=== PATIENT | male | born 1945 | race Caucasian/White ===

== ENCOUNTER 2019-05-07 23:40 | Inpatient (IN) ==
[2019-05-08 00:08] LABS: ABG Base Excess 1 mEq/L (-2 to 3); ABG HCO3 24 mEq/L (21-27); ABG Oxygen Saturation 91 % (95-98); ABG PCO2 29 mmHg (35-45); ABG PH 7.52 pH Units (7.32-7.45); ABG PO2 53 mmHg (85-104); ABG TCO2 24 mEq/L (20-26)
[2019-05-08 00:34] LABS: Basophils % 0.1 %; Eosinophils # 0.1 K/mcL (0.0-0.6); Eosinophils % 0.6 %; Hematocrit 34.2 % (37.5-50.1); Hemoglobin 11.6 g/dL (12.9-16.9); Immature Granulocytes % 0.6 % (0-4); Lymphocytes # 0.8 K/mcL (0.6-4.6); Lymphocytes % 5.7 %; Mean Corpuscular HGB Conc 33.9 g/dL (31.6-35.5); Mean Corpuscular Hemoglobin 31.8 pg (28.0-33.3); Mean Corpuscular Volume 93.7 fL (83.0-100.0); Mean Platelet Volume 9.5 fL (9.4-12.4); Monocytes # 0.9 K/mcL (0.0-1.3); Monocytes % 6.6 %; Neutrophils # 11.6 K/mcL (1.6-8.9); Platelet Count 277 K/mcL (140-400); Red Blood Count 3.65 M/mcL (4.19-5.50); Red Cell Distribution Width 18.3 % (11.5-14.5); Segmented Neutrophils % 86.4 %; White Blood Count 13.4 K/mcL (4.3-11.1)
[2019-05-08 00:48] LABS: INR 1.3; Prothrombin Time 14.7 Seconds (9.4-12.1)
[2019-05-08 00:50] LABS: Activated Partial Thrombo Time 27.4 Seconds (26.0-36.0)
[2019-05-08 00:55] LABS: BUN/Creatinine Ratio 20 (6-26); Blood Urea Nitrogen 14 mg/dL (8-23); Calcium 9.6 mg/dL (8.6-10.3); Carbon Dioxide 25 mEq/L (23-29); Chloride 102 mEq/L (98-107); Glucose 154 mg/dL (70-105); Osmolality,Calculated 286 (280-300); Potassium 4.1 mEq/L (3.5-5.1); Sodium 136 mEq/L (136-145); eGFR For African Americans > 60 (> 60); eGFR For Non-African Americans > 60 (> 60)
[2019-05-08] MEDS ORDERED: D5% in Water 1,000 ML IVC PRN (04:02)
[2019-05-08] MEDS ORDERED: Dextrose Gel 15 GM/37.5 ML TUBE PO PRN ×2 (04:02)
[2019-05-08] MEDS ORDERED: *HR* Dextrose 50 % in Water (Syg) 50 ML SYRINGE IVP PRN (04:02)
[2019-05-08] MEDS ORDERED: Naloxone 0.4 MG/ML INJ IVP PRN (04:02)
[2019-05-08] MEDS ORDERED: *HR* Metoprolol 5 MG/5 ML VIAL IVP ONE (04:50)
[2019-05-08] MEDS ORDERED: *HR* Heparin 5,000 UNIT/ML VIAL IVP PRN ×2 (04:53)
[2019-05-08] MEDS ORDERED: *HR* Heparin 5,000 UNIT/ML VIAL IVP ONE (04:53)
[2019-05-08] MEDS ORDERED: Levalbuterol Neb 1.25 MG/3 ML IH PRN (05:02)
[2019-05-08] MEDS ORDERED: 0.9 % Sodium Chloride 1,000 ML IVC SCH (05:15)
[2019-05-08 05:27] LABS: Albumin 3.4 g/dL (3.5-5.7); Bilirubin,Direct 0.3 mg/dL (0.0-0.2); Bilirubin,Indirect 0.4 mg/dL (0.0-1.0); Bilirubin,Total 0.7 mg/dL (0.3-1.0); Globulin 3.4 g/dL (2.4-3.5); Magnesium 1.6 mg/dL (1.6-2.6); Phosphorous 2.9 mg/dL (2.7-4.5); Total Protein 6.8 g/dL (6.4-8.9)
[2019-05-08] MEDS ORDERED: Pantoprazole 40 MG VIAL IVP ONE (05:35)
[2019-05-08] MEDS: MethylPREDNISolone 40 MG/ML VIAL IVP SCH ×4 (05:39→23:27)
[2019-05-08] MEDS: Acetaminophen 325 MG TABLET PO PRN (05:39)
[2019-05-08] MEDS: Heparin 25,000 UNIT/250 ML D5W 25,000 UNIT/250 ML IV.SOLN IVC SCH (05:40)
[2019-05-08] MEDS: Insulin LISPRO 300 UNITS/3 ML VIAL SQ SCH ×4 (06:01→23:36)
[2019-05-08 06:59] LABS: Hematocrit 30.8 % (37.5-50.1); Hemoglobin 10.7 g/dL (12.9-16.9); INR 1.6; Mean Corpuscular HGB Conc 34.7 g/dL (31.6-35.5); Mean Corpuscular Hemoglobin 32.3 pg (28.0-33.3); Mean Corpuscular Volume 93.1 fL (83.0-100.0); Mean Platelet Volume 9.6 fL (9.4-12.4); Platelet Count 220 K/mcL (140-400); Prothrombin Time 18.3 Seconds (9.4-12.1); Red Blood Count 3.31 M/mcL (4.19-5.50); Red Cell Distribution Width 18.3 % (11.5-14.5)
[2019-05-08 07:48] LABS: Heparin anti-factor XA UFH 1.08 IU/mL (0.30-0.70)
[2019-05-08] MEDS: Piperacillin/Tazobactam 3.375 GM in 0.9 % Sodium Chloride Mini Bag 100 ML IVPB SCH ×3 (07:57→23:27)
[2019-05-08] MEDS: Melatonin 3 MG TABLET PO SCH (07:57)
[2019-05-08] MEDS: Aspirin Enteric Coated 81 MG Tablet PO SCH (07:57)
[2019-05-08 08:13] LABS: Estimated Average Glucose 194 mg/dl
[2019-05-08] MEDS ORDERED: Isovue-370 500 ML BOTTLE IVP ONE (09:29)
[2019-05-09 01:11] LABS: Adenovirus Not Detected (Not Detect); Coronavirus 229E Not Detected (Not Detect); Coronavirus HKU1 Not Detected (Not Detect); Coronavirus NL63 Not Detected (Not Detect); Coronavirus OC43 Not Detected (Not Detect); Human Metapneumovirus Not Detected (Not Detect); Human Rhinovirus/Enterovirus Not Detected (Not Detect); Influenza A Subtype 2009 H1 Not Detected (Not Detect); Influenza A Untypeable Not Detected (Not Detect); Influenza B Not Detected (Not Detect); Parainfluenza Virus 1 Not Detected (Not Detect); Parainfluenza Virus 2 Not Detected (Not Detect); Parainfluenza Virus 3 Not Detected (Not Detect); Parainfluenza Virus 4 Not Detected (Not Detect); Respiratory Syncytial Virus DETECTED (Not Detect)
[2019-05-09 01:12] LABS: Bordetella Pertussis Not Detected (Not Detect); Chlamydophila pneumoniae Not Detected (Not Detect); Mycoplasma pneumoniae Not Detected (Not Detect)
[2019-05-09 02:01] LABS: Basophils % 0.1 %; Hematocrit 30.5 % (37.5-50.1); Hemoglobin 10.4 g/dL (12.9-16.9); Immature Granulocytes % 0.5 % (0-4); Lymphocytes # 0.4 K/mcL (0.6-4.6); Lymphocytes % 3.5 %; Mean Corpuscular HGB Conc 34.1 g/dL (31.6-35.5); Mean Corpuscular Hemoglobin 31.4 pg (28.0-33.3); Mean Corpuscular Volume 92.1 fL (83.0-100.0); Mean Platelet Volume 9.7 fL (9.4-12.4); Monocytes # 0.4 K/mcL (0.0-1.3); Monocytes % 3.6 %; Neutrophils # 10.9 K/mcL (1.6-8.9); Platelet Count 225 K/mcL (140-400); Red Blood Count 3.31 M/mcL (4.19-5.50); Segmented Neutrophils % 92.3 %; White Blood Count 11.8 K/mcL (4.3-11.1)
[2019-05-09 02:20] LABS: BUN/Creatinine Ratio 31 (6-26); Blood Urea Nitrogen 17 mg/dL (8-23); Calcium 8.8 mg/dL (8.6-10.3); Carbon Dioxide 23 mEq/L (23-29); Chloride 104 mEq/L (98-107); Glucose 192 mg/dL (70-105); Osmolality,Calculated 291 (280-300); Potassium 3.7 mEq/L (3.5-5.1); Sodium 137 mEq/L (136-145); eGFR For African Americans > 60 (> 60); eGFR For Non-African Americans > 60 (> 60)
[2019-05-09] MEDS: MethylPREDNISolone 40 MG/ML VIAL IVP SCH ×2 (06:06→06:07)
[2019-05-09] MEDS: Insulin LISPRO 300 UNITS/3 ML VIAL SQ SCH ×3 (06:13→18:16)
[2019-05-09] MEDS: Heparin 25,000 UNIT/250 ML D5W 25,000 UNIT/250 ML IV.SOLN IVC SCH (06:37)
[2019-05-09] MEDS: Melatonin 3 MG TABLET PO SCH (08:22)
[2019-05-09] MEDS: Piperacillin/Tazobactam 3.375 GM in 0.9 % Sodium Chloride Mini Bag 100 ML IVPB SCH ×3 (08:22→23:52)
[2019-05-09] MEDS: Aspirin Enteric Coated 81 MG Tablet PO SCH (08:22)
[2019-05-09] MEDS ORDERED: *HR* Metoprolol 5 MG/5 ML VIAL IVP PRN (09:55)
[2019-05-09 14:24] LABS: Glucose,Pleural Fluid 231 mg/dL (No Ref Range); LDH,Pleural Fluid 593 Units/L (No Ref Range); Total Protein,Pleural Fluid < 3.0 g/dL
[2019-05-09] MEDS: methylPREDNISolone 125 MG/2 ML VIAL IVP SCH ×2 (15:40→23:53)
[2019-05-09 15:55] LABS: Appearance of Pleural Fl Bloody (Clear)
[2019-05-09 15:58] LABS: Basophils,Pleural Fluid 0 %; Eosinophils,Pleural Fluid 0 %
[2019-05-09] MEDS: Ipratropium/Albuterol Neb 3 ML IH SCH ×3 (16:06→23:27)
[2019-05-09] MEDS ORDERED: Furosemide 20 MG/2 ML VIAL IVP SCH (17:00)
[2019-05-09] MEDS: Furosemide 20 MG/2 ML VIAL IVP SCH (20:02)
[2019-05-10] MEDS: Insulin LISPRO 300 UNITS/3 ML VIAL SQ SCH ×4 (00:28→17:59)
[2019-05-10 01:05] LABS: Basophils % 0.1 %; Hemoglobin 11.6 g/dL (12.9-16.9); Immature Granulocytes % 0.5 % (0-4); Lymphocytes # 0.5 K/mcL (0.6-4.6); Lymphocytes % 3.5 %; Mean Corpuscular HGB Conc 34.1 g/dL (31.6-35.5); Mean Corpuscular Hemoglobin 31.5 pg (28.0-33.3); Mean Corpuscular Volume 92.4 fL (83.0-100.0); Mean Platelet Volume 9.5 fL (9.4-12.4); Monocytes # 0.8 K/mcL (0.0-1.3); Monocytes % 5.2 %; Neutrophils # 13.4 K/mcL (1.6-8.9); Platelet Count 258 K/mcL (140-400); Red Blood Count 3.68 M/mcL (4.19-5.50); Red Cell Distribution Width 18.4 % (11.5-14.5); Segmented Neutrophils % 90.7 %; White Blood Count 14.8 K/mcL (4.3-11.1)
[2019-05-10 01:17] LABS: BUN/Creatinine Ratio 33 (6-26); Blood Urea Nitrogen 26 mg/dL (8-23); Carbon Dioxide 23 mEq/L (23-29); Chloride 106 mEq/L (98-107); Glucose 255 mg/dL (70-105); Osmolality,Calculated 305 (280-300); Phosphorous 3.5 mg/dL (2.7-4.5); Potassium 3.9 mEq/L (3.5-5.1); Sodium 141 mEq/L (136-145); eGFR For African Americans > 60 (> 60); eGFR For Non-African Americans > 60 (> 60)
[2019-05-10] MEDS: Ipratropium/Albuterol Neb 3 ML IH SCH ×6 (03:47→23:47)
[2019-05-10] MEDS: methylPREDNISolone 125 MG/2 ML VIAL IVP SCH ×2 (08:43→17:55)
[2019-05-10] MEDS: Piperacillin/Tazobactam 3.375 GM in 0.9 % Sodium Chloride Mini Bag 100 ML IVPB SCH ×2 (08:43→16:50)
[2019-05-10] MEDS: Furosemide 20 MG/2 ML VIAL IVP SCH ×2 (08:43→20:53)
[2019-05-10] MEDS: Aspirin Enteric Coated 81 MG Tablet PO SCH (08:44)
[2019-05-10] MEDS ORDERED: Furosemide 20 MG/2 ML VIAL IVP SCH (09:00)
[2019-05-10] MEDS: Heparin 25,000 UNIT/250 ML D5W 25,000 UNIT/250 ML IV.SOLN IVC SCH (13:03)
[2019-05-10] MEDS ORDERED: Warfarin perPT PO PRN (18:00)
[2019-05-10] MEDS ORDERED: *HR* Warfarin 5 MG TABLET PO ONE (18:00)
[2019-05-10] MEDS: Melatonin 3 MG TABLET PO SCH (20:53)
[2019-05-10] MEDS ORDERED: Insulin LISPRO 300 UNITS/3 ML VIAL SQ SCH (21:00)
[2019-05-11] MEDS: methylPREDNISolone 125 MG/2 ML VIAL IVP SCH ×3 (00:29→16:47)
[2019-05-11] MEDS: Piperacillin/Tazobactam 3.375 GM in 0.9 % Sodium Chloride Mini Bag 100 ML IVPB SCH ×2 (00:29→08:24)
[2019-05-11 01:51] LABS: Basophils % 0.1 %; Hematocrit 34.3 % (37.5-50.1); Hemoglobin 11.5 g/dL (12.9-16.9); Lymphocytes # 0.3 K/mcL (0.6-4.6); Lymphocytes % 2.5 %; Mean Corpuscular HGB Conc 33.5 g/dL (31.6-35.5); Mean Corpuscular Hemoglobin 31.5 pg (28.0-33.3); Monocytes # 0.5 K/mcL (0.0-1.3); Monocytes % 4.2 %; Neutrophils # 11.5 K/mcL (1.6-8.9); Platelet Count 247 K/mcL (140-400); Red Blood Count 3.65 M/mcL (4.19-5.50); Red Cell Distribution Width 18.4 % (11.5-14.5); Segmented Neutrophils % 92.2 %; White Blood Count 12.5 K/mcL (4.3-11.1)
[2019-05-11 01:56] LABS: INR 1.7; Prothrombin Time 18.9 Seconds (9.4-12.1)
[2019-05-11 02:14] LABS: BUN/Creatinine Ratio 26 (6-26); Blood Urea Nitrogen 28 mg/dL (8-23); Calcium 8.6 mg/dL (8.6-10.3); Carbon Dioxide 27 mEq/L (23-29); Chloride 100 mEq/L (98-107); Glucose 296 mg/dL (70-105); Osmolality,Calculated 306 (280-300); Potassium 3.8 mEq/L (3.5-5.1); Sodium 140 mEq/L (136-145); eGFR For African Americans > 60 (> 60); eGFR For Non-African Americans > 60 (> 60)
[2019-05-11] MEDS: Ipratropium/Albuterol Neb 3 ML IH SCH ×5 (03:42→19:46)
[2019-05-11] MEDS ORDERED: Aminoglycoside Consult 1 EACH MC ONE (07:56)
[2019-05-11] MEDS: Insulin LISPRO 300 UNITS/3 ML VIAL SQ SCH ×6 (08:22→21:32)
[2019-05-11] MEDS: Aspirin Enteric Coated 81 MG Tablet PO SCH (08:23)
[2019-05-11] MEDS: Furosemide 20 MG/2 ML VIAL IVP SCH ×2 (08:23→20:34)
[2019-05-11] MEDS ORDERED: *HR* Warfarin 5 MG TABLET PO ONE (18:00)
[2019-05-11] MEDS: Melatonin 3 MG TABLET PO SCH (20:34)
[2019-05-11] MEDS ORDERED: Insulin DETEMIR 100 UNIT/ML X5UNITS SQ SCH (21:00)
[2019-05-12] MEDS: methylPREDNISolone 125 MG/2 ML VIAL IVP SCH ×4 (00:05→23:42)
[2019-05-12] MEDS: Ipratropium/Albuterol Neb 3 ML IH SCH ×7 (00:15→23:14)
[2019-05-12 05:26] LABS: Hematocrit 31.6 % (37.5-50.1); Hemoglobin 10.6 g/dL (12.9-16.9); Mean Corpuscular HGB Conc 33.5 g/dL (31.6-35.5); Mean Corpuscular Hemoglobin 31.5 pg (28.0-33.3); Mean Corpuscular Volume 93.8 fL (83.0-100.0); Platelet Count 203 K/mcL (140-400); Red Blood Count 3.37 M/mcL (4.19-5.50); Red Cell Distribution Width 18.6 % (11.5-14.5); White Blood Count 11.1 K/mcL (4.3-11.1)
[2019-05-12 05:37] LABS: INR 2.5
[2019-05-12 06:10] LABS: Blood Urea Nitrogen 24 mg/dL (8-23); Calcium 8.5 mg/dL (8.6-10.3); Chloride 101 mEq/L (98-107); Glucose 347 mg/dL (70-105); Osmolality,Calculated 306 (280-300); Potassium 3.7 mEq/L (3.5-5.1); Sodium 139 mEq/L (136-145)
[2019-05-12 06:28] LABS: BUN/Creatinine Ratio 32 (6-26); Carbon Dioxide 25 mEq/L (23-29); eGFR For African Americans > 60 (> 60); eGFR For Non-African Americans > 60 (> 60)
[2019-05-12] MEDS ORDERED: Insulin DETEMIR 100 UNIT/ML X5UNITS SQ ONE (07:29)
[2019-05-12] MEDS: Furosemide 20 MG/2 ML VIAL IVP SCH ×2 (08:29→20:20)
[2019-05-12] MEDS: Aspirin Enteric Coated 81 MG Tablet PO SCH (08:29)
[2019-05-12] MEDS: Insulin LISPRO 300 UNITS/3 ML VIAL SQ SCH ×3 (11:35→20:21)
[2019-05-12] MEDS: Pantoprazole 40 MG VIAL IVP SCH (16:57)
[2019-05-12] MEDS ORDERED: *HR* Warfarin 2.5 MG TABLET PO ONE (18:00)
[2019-05-12] MEDS ORDERED: Insulin LISPRO 300 UNITS/3 ML VIAL SQ STA (18:15)
[2019-05-12] MEDS: Acetaminophen 325 MG TABLET PO PRN (20:20)
[2019-05-12] MEDS: Melatonin 3 MG TABLET PO SCH (20:20)
[2019-05-12] MEDS ORDERED: Insulin DETEMIR 100 UNIT/ML X5UNITS SQ SCH (21:00)
[2019-05-13] MEDS: Ipratropium/Albuterol Neb 3 ML IH SCH ×5 (04:22→19:53)
[2019-05-13 06:42] LABS: Basophils # 0.1 K/mcL (0.0-0.2); Basophils % 0.4 %; Hematocrit 31.1 % (37.5-50.1); Hemoglobin 10.3 g/dL (12.9-16.9); Immature Granulocytes % 3.1 % (0-4); Lymphocytes # 0.3 K/mcL (0.6-4.6); Lymphocytes % 2.5 %; Mean Corpuscular HGB Conc 33.1 g/dL (31.6-35.5); Mean Corpuscular Volume 96.6 fL (83.0-100.0); Mean Platelet Volume 10.2 fL (9.4-12.4); Monocytes # 0.4 K/mcL (0.0-1.3); Monocytes % 3.4 %; Neutrophils # 10.9 K/mcL (1.6-8.9); Platelet Count 146 K/mcL (140-400); Red Blood Count 3.22 M/mcL (4.19-5.50); Segmented Neutrophils % 90.6 %; White Blood Count 12.1 K/mcL (4.3-11.1)
[2019-05-13 06:51] LABS: INR 3.7; Prothrombin Time 41.8 Seconds (9.4-12.1)
[2019-05-13 06:58] LABS: BUN/Creatinine Ratio 33 (6-26); Blood Urea Nitrogen 24 mg/dL (8-23); Calcium 8.3 mg/dL (8.6-10.3); Carbon Dioxide 30 mEq/L (23-29); Chloride 100 mEq/L (98-107); Glucose 318 mg/dL (70-105); Osmolality,Calculated 304 (280-300); Sodium 139 mEq/L (136-145); eGFR For African Americans > 60 (> 60); eGFR For Non-African Americans > 60 (> 60)
[2019-05-13] MEDS: Insulin LISPRO 300 UNITS/3 ML VIAL SQ SCH ×6 (07:49→21:00)
[2019-05-13] MEDS: methylPREDNISolone 125 MG/2 ML VIAL IVP SCH (07:49)
[2019-05-13] MEDS: Furosemide 20 MG/2 ML VIAL IVP SCH (07:50)
[2019-05-13] MEDS: Pantoprazole 40 MG VIAL IVP SCH (07:50)
[2019-05-13] MEDS: Aspirin Enteric Coated 81 MG Tablet PO SCH (07:50)
[2019-05-13] MEDS: Heparin 25,000 UNIT/250 ML D5W 25,000 UNIT/250 ML IV.SOLN IVC SCH (19:38)
[2019-05-13] MEDS: Insulin DETEMIR 100 UNIT/ML X5UNITS SQ SCH (21:08)
[2019-05-13] MEDS: Melatonin 3 MG TABLET PO SCH (21:09)
[2019-05-14] MEDS: Ipratropium/Albuterol Neb 3 ML IH SCH ×6 (00:01→19:33)
[2019-05-14 07:27] LABS: Prothrombin Time 33.8 Seconds (9.4-12.1)
[2019-05-14] MEDS: Insulin LISPRO 300 UNITS/3 ML VIAL SQ SCH ×7 (07:59→21:23)
[2019-05-14] MEDS: predniSONE 20 MG TABLET PO SCH (08:00)
[2019-05-14] MEDS: Furosemide 20 MG TABLET PO SCH (08:00)
[2019-05-14] MEDS: Aspirin Enteric Coated 81 MG Tablet PO SCH (08:00)
[2019-05-14] MEDS ORDERED: predniSONE 20 MG TABLET PO SCH (09:00)
[2019-05-14] MEDS ORDERED: Furosemide 40 MG/4 ML VIAL IVP ONE (11:42)
[2019-05-14 17:28] LABS: BUN/Creatinine Ratio 34 (6-26); Blood Urea Nitrogen 30 mg/dL (8-23); Calcium 8.4 mg/dL (8.6-10.3); Carbon Dioxide 25 mEq/L (23-29); Chloride 96 mEq/L (98-107); Glucose 228 mg/dL (70-105); Magnesium 1.8 mg/dL (1.6-2.6); Osmolality,Calculated 293 (280-300); Potassium 4.2 mEq/L (3.5-5.1); Sodium 135 mEq/L (136-145); eGFR For African Americans > 60 (> 60); eGFR For Non-African Americans > 60 (> 60)
[2019-05-14] MEDS ORDERED: *HR* Warfarin 2.5 MG TABLET PO ONE (18:00)
[2019-05-14] MEDS: Melatonin 3 MG TABLET PO SCH (19:49)
[2019-05-14] MEDS: Insulin DETEMIR 100 UNIT/ML X5UNITS SQ SCH (21:25)
[2019-05-15] MEDS: Ipratropium/Albuterol Neb 3 ML IH SCH ×7 (00:11→23:55)
[2019-05-15 01:26] LABS: Hematocrit 33.5 % (37.5-50.1); Mean Corpuscular HGB Conc 32.8 g/dL (31.6-35.5); Mean Corpuscular Hemoglobin 32.1 pg (28.0-33.3); Mean Corpuscular Volume 97.7 fL (83.0-100.0); Mean Platelet Volume 10.5 fL (9.4-12.4); Platelet Count 109 K/mcL (140-400); Red Blood Count 3.43 M/mcL (4.19-5.50); Red Cell Distribution Width 18.9 % (11.5-14.5); White Blood Count 11.8 K/mcL (4.3-11.1)
[2019-05-15 01:29] LABS: INR 2.2; Prothrombin Time 25.3 Seconds (9.4-12.1)
[2019-05-15 01:45] LABS: BUN/Creatinine Ratio 39 (6-26); Blood Urea Nitrogen 29 mg/dL (8-23); Calcium 8.5 mg/dL (8.6-10.3); Carbon Dioxide 29 mEq/L (23-29); Chloride 98 mEq/L (98-107); Glucose 151 mg/dL (70-105); Magnesium 1.8 mg/dL (1.6-2.6); Osmolality,Calculated 293 (280-300); Potassium 3.9 mEq/L (3.5-5.1); Sodium 137 mEq/L (136-145); eGFR For African Americans > 60 (> 60); eGFR For Non-African Americans > 60 (> 60)
[2019-05-15] MEDS: Furosemide 20 MG TABLET PO SCH (08:15)
[2019-05-15] MEDS: predniSONE 20 MG TABLET PO SCH (08:15)
[2019-05-15] MEDS: Aspirin Enteric Coated 81 MG Tablet PO SCH (08:15)
[2019-05-15] MEDS: Insulin LISPRO 300 UNITS/3 ML VIAL SQ SCH ×7 (08:16→20:43)
[2019-05-15] MEDS ORDERED: *HR* Warfarin 2.5 MG TABLET PO ONE (18:00)
[2019-05-15] MEDS: Insulin DETEMIR 100 UNIT/ML X5UNITS SQ SCH (20:44)
[2019-05-15] MEDS: Melatonin 3 MG TABLET PO SCH (21:13)
[2019-05-16] MEDS: Ipratropium/Albuterol Neb 3 ML IH SCH ×6 (03:39→23:59)
[2019-05-16] MEDS: Insulin LISPRO 300 UNITS/3 ML VIAL SQ SCH ×5 (08:04→20:50)
[2019-05-16] MEDS: Aspirin Enteric Coated 81 MG Tablet PO SCH (08:14)
[2019-05-16] MEDS: Furosemide 20 MG TABLET PO SCH (08:14)
[2019-05-16] MEDS: predniSONE 20 MG TABLET PO SCH (08:14)
[2019-05-16 11:20] LABS: INR 2.1; Prothrombin Time 24.4 Seconds (9.4-12.1)
[2019-05-16] MEDS ORDERED: Isovue-370 500 ML BOTTLE IVP ONE (15:49)
[2019-05-16] MEDS ORDERED: Carbamide Peroxide 150 DROP/15 ML BOTTLE RIGHT EAR ONE (16:59)
[2019-05-16] MEDS ORDERED: *HR* Warfarin 5 MG TABLET PO ONE (18:00)
[2019-05-16] MEDS ORDERED: Enoxaparin Weight Dosing SQ SCH (18:00)
[2019-05-16] MEDS: Melatonin 3 MG TABLET PO SCH (20:51)
[2019-05-16] MEDS: Carbamide Peroxide 150 DROP/15 ML BOTTLE BOTH EARS ONE (20:52)
[2019-05-17 01:17] LABS: Hematocrit 34.5 % (37.5-50.1); Hemoglobin 11.7 g/dL (12.9-16.9); Mean Corpuscular HGB Conc 33.9 g/dL (31.6-35.5); Mean Corpuscular Hemoglobin 31.8 pg (28.0-33.3); Mean Corpuscular Volume 93.8 fL (83.0-100.0); Mean Platelet Volume 10.6 fL (9.4-12.4); Platelet Count 103 K/mcL (140-400); Red Blood Count 3.68 M/mcL (4.19-5.50); Red Cell Distribution Width 18.3 % (11.5-14.5); White Blood Count 10.1 K/mcL (4.3-11.1)
[2019-05-17 01:19] LABS: Prothrombin Time 22.9 Seconds (9.4-12.1)
[2019-05-17 01:34] LABS: BUN/Creatinine Ratio 33 (6-26); Blood Urea Nitrogen 20 mg/dL (8-23); Calcium 8.5 mg/dL (8.6-10.3); Carbon Dioxide 26 mEq/L (23-29); Chloride 99 mEq/L (98-107); Glucose 157 mg/dL (70-105); Osmolality,Calculated 290 (280-300); Potassium 4.1 mEq/L (3.5-5.1); Sodium 137 mEq/L (136-145); eGFR For African Americans > 60 (> 60); eGFR For Non-African Americans > 60 (> 60)
[2019-05-17] MEDS: Ipratropium/Albuterol Neb 3 ML IH SCH ×5 (03:31→19:44)
[2019-05-17] MEDS: Insulin LISPRO 300 UNITS/3 ML VIAL SQ SCH ×4 (09:31→21:08)
[2019-05-17] MEDS: Aspirin Enteric Coated 81 MG Tablet PO SCH (09:38)
[2019-05-17] MEDS: predniSONE 20 MG TABLET PO SCH (09:38)
[2019-05-17] MEDS: Furosemide 20 MG TABLET PO SCH (09:39)
[2019-05-17] MEDS: Morphine Sulfate Oral CONC 10 MG/0.5 ML ORAL.SYG SL PRN (10:00)
[2019-05-17] MEDS ORDERED: *HR* Warfarin 2.5 MG TABLET PO ONE (18:00)
[2019-05-17] MEDS: Melatonin 3 MG TABLET PO SCH (21:07)
[2019-05-18] MEDS: Ipratropium/Albuterol Neb 3 ML IH SCH ×6 (00:49→20:29)
[2019-05-18] MEDS: predniSONE 20 MG TABLET PO SCH (09:35)
[2019-05-18] MEDS: Aspirin Enteric Coated 81 MG Tablet PO SCH (09:35)
[2019-05-18] MEDS: Furosemide 20 MG TABLET PO SCH (09:35)
[2019-05-18] MEDS: Insulin LISPRO 300 UNITS/3 ML VIAL SQ SCH ×4 (09:36→20:49)
[2019-05-18 11:08] LABS: BUN/Creatinine Ratio 33 (6-26); Blood Urea Nitrogen 22 mg/dL (8-23); Calcium 8.8 mg/dL (8.6-10.3); Carbon Dioxide 26 mEq/L (23-29); Chloride 95 mEq/L (98-107); Glucose 220 mg/dL (70-105); Osmolality,Calculated 288 (280-300); Potassium 4.2 mEq/L (3.5-5.1); Sodium 134 mEq/L (136-145); eGFR For African Americans > 60 (> 60); eGFR For Non-African Americans > 60 (> 60)
[2019-05-18 11:11] LABS: INR 2.9; Prothrombin Time 33.4 Seconds (9.4-12.1)
[2019-05-18] MEDS ORDERED: Carbamide Peroxide 150 DROP/15 ML BOTTLE BOTH EARS ONE (14:30)
[2019-05-18] MEDS ORDERED: Carbamide Peroxide 150 DROP/15 ML BOTTLE RIGHT EAR ONE (14:30)
[2019-05-18] MEDS: *HR* Enoxaparin 100 MG/ML SYRINGE SQ SCH (17:20)
[2019-05-18] MEDS: Carbamide Peroxide 150 DROP/15 ML BOTTLE BOTH EARS ONE (17:20)
[2019-05-18] MEDS: Melatonin 3 MG TABLET PO SCH (20:49)
[2019-05-19] MEDS: Ipratropium/Albuterol Neb 3 ML IH SCH ×6 (00:17→20:42)
[2019-05-19] MEDS: Morphine Sulfate Oral CONC 10 MG/0.5 ML ORAL.SYG SL PRN (00:34)
[2019-05-19] MEDS: *HR* Enoxaparin 100 MG/ML SYRINGE SQ SCH ×2 (05:59→17:41)
[2019-05-19] MEDS: predniSONE 20 MG TABLET PO SCH (08:30)
[2019-05-19] MEDS: Aspirin Enteric Coated 81 MG Tablet PO SCH (08:30)
[2019-05-19] MEDS: Insulin LISPRO 300 UNITS/3 ML VIAL SQ SCH ×4 (08:31→21:26)
[2019-05-19] MEDS: Furosemide 20 MG TABLET PO SCH (08:31)
[2019-05-19] MEDS: Sennosides/Docusate Sodium TABLET PO SCH (12:33)
[2019-05-19] MEDS: Melatonin 3 MG TABLET PO SCH (21:21)
[2019-05-20] MEDS: Ipratropium/Albuterol Neb 3 ML IH SCH ×7 (00:39→23:40)
[2019-05-20] MEDS: *HR* Enoxaparin 100 MG/ML SYRINGE SQ SCH ×2 (05:35→17:58)
[2019-05-20 07:05] LABS: Basophils % 0.2 %; Eosinophils % 0.2 %; Hemoglobin 11.5 g/dL (12.9-16.9); Immature Granulocytes % 0.6 % (0-4); Lymphocytes # 0.5 K/mcL (0.6-4.6); Lymphocytes % 3.6 %; Mean Corpuscular HGB Conc 31.9 g/dL (31.6-35.5); Mean Corpuscular Hemoglobin 31.3 pg (28.0-33.3); Mean Corpuscular Volume 98.1 fL (83.0-100.0); Mean Platelet Volume 11.3 fL (9.4-12.4); Monocytes # 0.5 K/mcL (0.0-1.3); Monocytes % 3.6 %; Neutrophils # 11.8 K/mcL (1.6-8.9); Platelet Count 130 K/mcL (140-400); Red Blood Count 3.67 M/mcL (4.19-5.50); Red Cell Distribution Width 17.7 % (11.5-14.5); Segmented Neutrophils % 91.8 %; White Blood Count 12.9 K/mcL (4.3-11.1)
[2019-05-20 07:21] LABS: BUN/Creatinine Ratio 34 (6-26); Blood Urea Nitrogen 21 mg/dL (8-23); Calcium 8.7 mg/dL (8.6-10.3); Carbon Dioxide 26 mEq/L (23-29); Chloride 100 mEq/L (98-107); Glucose 151 mg/dL (70-105); Osmolality,Calculated 292 (280-300); Potassium 4.2 mEq/L (3.5-5.1); Sodium 138 mEq/L (136-145); eGFR For African Americans > 60 (> 60); eGFR For Non-African Americans > 60 (> 60)
[2019-05-20] MEDS: predniSONE 20 MG TABLET PO SCH (08:35)
[2019-05-20] MEDS: Furosemide 20 MG TABLET PO SCH (08:35)
[2019-05-20] MEDS: Sennosides/Docusate Sodium TABLET PO SCH (08:35)
[2019-05-20] MEDS: Aspirin Enteric Coated 81 MG Tablet PO SCH (08:35)
[2019-05-20] MEDS: Insulin LISPRO 300 UNITS/3 ML VIAL SQ SCH ×4 (08:35→20:42)
[2019-05-20] MEDS: Carbamide Peroxide 150 DROP/15 ML BOTTLE RIGHT EAR SCH (11:25)
[2019-05-20] MEDS: Carbamide Peroxide 150 DROP/15 ML BOTTLE LEFT EAR SCH (11:25)
[2019-05-20] MEDS: Melatonin 3 MG TABLET PO SCH (20:42)
[2019-05-21] MEDS: Ipratropium/Albuterol Neb 3 ML IH SCH ×6 (03:51→23:40)
[2019-05-21 04:42] LABS: Hematocrit 35.7 % (37.5-50.1); Hemoglobin 11.6 g/dL (12.9-16.9); Mean Corpuscular HGB Conc 32.5 g/dL (31.6-35.5); Mean Corpuscular Hemoglobin 31.4 pg (28.0-33.3); Mean Corpuscular Volume 96.7 fL (83.0-100.0); Platelet Count 130 K/mcL (140-400); Red Blood Count 3.69 M/mcL (4.19-5.50); Red Cell Distribution Width 17.6 % (11.5-14.5); White Blood Count 9.4 K/mcL (4.3-11.1)
[2019-05-21] MEDS: *HR* Enoxaparin 100 MG/ML SYRINGE SQ SCH ×2 (05:20→16:58)
[2019-05-21] MEDS: Insulin LISPRO 300 UNITS/3 ML VIAL SQ SCH ×4 (08:01→20:49)
[2019-05-21] MEDS: Aspirin Enteric Coated 81 MG Tablet PO SCH (08:09)
[2019-05-21] MEDS: Sennosides/Docusate Sodium TABLET PO SCH (08:09)
[2019-05-21] MEDS: predniSONE 20 MG TABLET PO SCH (08:09)
[2019-05-21] MEDS: Furosemide 20 MG TABLET PO SCH (08:10)
[2019-05-21] MEDS: Carbamide Peroxide 150 DROP/15 ML BOTTLE RIGHT EAR SCH (08:10)
[2019-05-21] MEDS: Carbamide Peroxide 150 DROP/15 ML BOTTLE LEFT EAR SCH (08:10)
[2019-05-21] MEDS: Melatonin 3 MG TABLET PO SCH (20:49)
[2019-05-22] MEDS: Ipratropium/Albuterol Neb 3 ML IH SCH ×6 (03:38→23:44)
[2019-05-22] MEDS: *HR* Enoxaparin 100 MG/ML SYRINGE SQ SCH ×2 (05:36→17:22)
[2019-05-22] MEDS: Insulin LISPRO 300 UNITS/3 ML VIAL SQ SCH ×4 (08:29→21:22)
[2019-05-22] MEDS: Aspirin Enteric Coated 81 MG Tablet PO SCH (08:38)
[2019-05-22] MEDS: Sennosides/Docusate Sodium TABLET PO SCH (08:38)
[2019-05-22] MEDS: predniSONE 20 MG TABLET PO SCH (08:39)
[2019-05-22] MEDS: Carbamide Peroxide 150 DROP/15 ML BOTTLE LEFT EAR SCH (08:39)
[2019-05-22] MEDS: Carbamide Peroxide 150 DROP/15 ML BOTTLE RIGHT EAR SCH (08:39)
[2019-05-22] MEDS: Furosemide 20 MG TABLET PO SCH (08:39)
[2019-05-22] MEDS: Morphine Sulfate Oral CONC 10 MG/0.5 ML ORAL.SYG SL PRN ×2 (08:43→19:31)
[2019-05-22] MEDS: Budesonide Neb 0.5 MG/2 ML IH SCH ×3 (11:16→19:38)
[2019-05-22] MEDS: Fluticasone Propionate Nasal 50 MCG/SPRAY BOTTLE NS SCH (13:25)
[2019-05-22] MEDS: Melatonin 3 MG TABLET PO SCH (21:22)
[2019-05-23] MEDS: Ipratropium/Albuterol Neb 3 ML IH SCH ×5 (03:55→20:01)
[2019-05-23] MEDS: *HR* Enoxaparin 100 MG/ML SYRINGE SQ SCH (05:27)
[2019-05-23 07:09] LABS: Hematocrit 38.5 % (37.5-50.1); Hemoglobin 12.5 g/dL (12.9-16.9); Mean Corpuscular HGB Conc 32.5 g/dL (31.6-35.5); Mean Corpuscular Hemoglobin 30.7 pg (28.0-33.3); Mean Corpuscular Volume 94.6 fL (83.0-100.0); Mean Platelet Volume 11.1 fL (9.4-12.4); Platelet Count 170 K/mcL (140-400); Red Blood Count 4.07 M/mcL (4.19-5.50); Red Cell Distribution Width 17.9 % (11.5-14.5)
[2019-05-23 07:12] LABS: White Blood Count 15.5 K/mcL (4.3-11.1)
[2019-05-23] MEDS: Insulin LISPRO 300 UNITS/3 ML VIAL SQ SCH ×2 (07:44→12:18)
[2019-05-23] MEDS: Budesonide Neb 0.5 MG/2 ML IH SCH ×3 (08:06→20:19)
[2019-05-23] MEDS ORDERED: methylPREDNISolone 125 MG/2 ML VIAL IVP ONE (08:29)
[2019-05-23] MEDS: Morphine Sulfate Oral CONC 10 MG/0.5 ML ORAL.SYG SL PRN ×2 (08:34→09:07)
[2019-05-23] MEDS: Aspirin Enteric Coated 81 MG Tablet PO SCH (08:35)
[2019-05-23] MEDS: Furosemide 20 MG TABLET PO SCH (08:36)
[2019-05-23] MEDS: Fluticasone Propionate Nasal 50 MCG/SPRAY BOTTLE NS SCH (08:36)
[2019-05-23] MEDS: Sennosides/Docusate Sodium TABLET PO SCH (08:36)
[2019-05-23] MEDS ORDERED: Furosemide 40 MG/4 ML VIAL IVP ONE (08:38)
[2019-05-23] MEDS ORDERED: *HR* LORazepam 2 MG/ML VIAL IVP SCH (09:00)
[2019-05-23] MEDS ORDERED: D5 IVPB SCH (09:00)
[2019-05-23] MEDS ORDERED: SULFAMETHOXAZOLE IVPB SCH (09:00)
[2019-05-23] MEDS ORDERED: WATER IVPB SCH (09:00)
[2019-05-23] MEDS ORDERED: predniSONE 20 MG TABLET PO SCH (09:00)
[2019-05-23] MEDS ORDERED: TRIMETH IVPB SCH (09:00)
[2019-05-23] MEDS ORDERED: Morphine Sulfate 2 MG/ML SYRINGE IVP PRN (09:12)
[2019-05-23] MEDS ORDERED: Morphine Sulfate Oral CONC 10 MG/0.5 ML ORAL.SYG SL SCH (09:15)
[2019-05-23] MEDS ORDERED: Morphine Sulfate 2 MG/ML SYRINGE IVP ONE (09:16)
[2019-05-23] MEDS: *HR* LORazepam 2 MG/ML VIAL IVP SCH ×12 (09:36→20:31)
[2019-05-23] MEDS ORDERED: methylPREDNISolone 125 MG/2 ML VIAL IVP SCH (12:00)
[2019-05-23] MEDS ORDERED: Atropine Sulfate 1% 40 DROP/2 ML BOTTLE SL PRN (13:30)
[2019-05-23] MEDS ORDERED: Haloperidol Lactate 5 MG/ML VIAL IVP PRN (13:31)
[2019-05-23] MEDS: Morphine Sulfate 2 MG/ML SYRINGE IVP PRN ×4 (14:27→20:16)
[2019-05-23 20:37] VITALS: BP 111/76
== END 2019-05-23 21:07 | disposition expired | DRG 871 ==
LOC: 2NNU 23:40 → EMEROOARM 23:40 → 2NNU 05-08 03:40 → SUATTDRO 05-08 05:10 → 2NNU 05-12 16:46
PROVIDERS: ADMIT Internal Medicine; ATTEND Student in an Organized Health Care Education/Training Program